=== PATIENT | male | born 1930 | race Caucasian/White ===

== ENCOUNTER 2020-11-25 15:51 | Emergency (ER) | payer OTHER, BC ==
[~2020-11-25] VITALS: Ht 182.9 cm; Wt 97.5 kg
[2020-11-25 15:58] VITALS: BP 155/81
--- NOTE | 2020-11-25 16:06 | NUR ---
LACEY, WHEELCHAIRED TO LOBBY CONTACT INFO FOR ROGERS, HIS DAUGHTER [phone]
--- NOTE | 2020-11-25 17:24 | NUR ---
PT W/C ASSISTED TO BED 12.
--- NOTE | 2020-11-25 17:49 | NUR ---
89/M biba with c/o fall. 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 Patient states he hit both of his knees and the right side of his head. Patient states 5/10 pain worsens when attempting to move his legs. Patient very hard of hearing but able to answer questions and make needs met.
[2020-11-25 18:29] LABS: BASOPHILS # (AUTO) 0.1 K/uL (0.00-0.22); BASOPHILS % (AUTO) 0.7 % (0.0-2.0); EOSINOPHILS # (AUTO) 0.1 K/uL (0-0.4); EOSINOPHILS % (AUTO) 1.4 % (0.0-4.0); HEMATOCRIT 41.2 % (36-52); HEMOGLOBIN 13.7 g/dL (12.0-18.0); LYMPHOCYTES # (AUTO) 1.3 K/uL (2.0-11.5); LYMPHOCYTES % (AUTO) 15.1 % (20.5-51.1); MEAN CORPUSCULAR HEMOGLOBIN 31 pg (27-31); MEAN CORPUSCULAR HGB CONC 33 g/dL (33-37); MEAN CORPUSCULAR VOLUME 92.5 fL (80-94); MONOCYTES # (AUTO) 0.9 K/uL (0.8-1.0); MONOCYTES % (AUTO) 10.6 % (1.7-9.3); NEUTROPHILS # (AUTO) 6.4 K/uL (1.8-7.7); NEUTROPHILS % (AUTO) 72.2 % (42.2-75.2); PLATELET COUNT (AUTO) 254 K/uL (140-450); RED BLOOD CELL COUNT(AUTO) 4.45 MIL/uL (4.20-6.10); RED CELL DISTRIBUTION WIDTH 13.2 % (11.6-13.7); WHITE BLOOD COUNT (AUTO) 8.9 K/uL (4.8-10.8)
--- NOTE | 2020-11-25 18:30 | NUR ---
Patient in wheel chair bedside awaiting results, daughter at bedside.
[2020-11-25 18:48] LABS: ANION GAP 12.8 (8-16); CARBON DIOXIDE 29.2 mmol/L (21-32); CHLORIDE 108 mmol/L (98-107); GLUCOSE 123 mg/dL (74-106); SODIUM SERUM 146 mmol/L (136-145); UREA NITROGEN, BLOOD 28 mg/dL (7-18)
--- NOTE | 2020-11-25 19:10 | NUR ---
Pt report given to Kendall. Transfer of care at this time.
--- NOTE | 2020-11-25 19:35 | NUR ---
PT. AMBULATED TO BATHROOM WITH GUARDED GAIT, WITH ASSISTIVE DEVICE OF W/C.
[2020-11-25 19:55] VITALS: BP 180/88
--- NOTE | 2020-11-25 19:55 | NUR ---
Patient discharged with v/s stable. Written and verbal after care instructions given and explained. Patient verbalized understanding. Wheel Chair Assisted by daugher to car. All questions addressed prior to discharge. Advised to follow up with PMD.
== END 2020-11-25 19:55 | disposition home or self-care (01) ==
LOC: MED 15:51
DX: S80.02XA Contusion of left knee, initial encounter (principal); S80.01XA Contusion of right knee, initial encounter; W18.30XA Fall on same level, unspecified, initial encounter; Y93.89 Activity, other specified; Y92.89 Other specified places as the place of occurrence of the external cause; Y99.8 Other external cause status
CPT/HCPCS: 36415; 70450; 73562; 80048; 85025; 99285; G0482